=== PATIENT | male | born 1960 | race Caucasian/White ===

== ENCOUNTER 2016-06-21 11:58 | Emergency (ER) | payer SELFPAY ==
[2016-06-21 12:30] VITALS: BP 151/102
[2016-06-21] MEDS ORDERED: Ibuprofen 600 MG Tab PO ONE (12:46)
--- NOTE | 2016-06-21 12:51 | EDM.PDOC ---
ED HPI GENERAL MEDICAL PROBLEM - General Chief Complaint: ENT Problem Stated Complaint: SINSUS INFECTION Time Seen by Provider: 06/21/16 12:30 Source of Information: Reports: Patient History Limitations: Reports: No Limitations - History of Present Illness INITIAL COMMENTS - FREE TEXT/NARRATIVE: Patient is a 55 year old male who presents to the E.D. complaining of a 5 day history of sinus drainage, left ear plug, postnasal drip, nonproductive cough, and mild scratchy throat. Patient has been on a 1 month long roadtrip from [place] to [place] and now back through [place] to home. Symptoms have been waxing and waning depending on the day. Patient questions if he has a sinus infection. In addition patient has history of HTN and and hypothyroidism. States he ran out of his medications approximately 2.5 wks ago. Is awaiting to see PCP this coming Friday for refill but notes they would not refill his medications over the phone since he has not had any blood work obtained. Unclear why patient did not have his medications refilled prior to leaving. Patient denies fever/chills, cp, sob, n/v, dizziness, body aches, or any additional complaints. Duration: Chronic, Waxing/Waning Location: Reports: Head Severity: Mild Improves with: Reports: None Worsens with: Reports: None Context: Reports: Other (traveling) Associated Symptoms: Reports: Cough (to clear throat). Denies: Chest Pain, cough w sputum, Fever/Chills, Headaches, Loss of Appetite, Malaise, Nausea/ Vomiting, Shortness of Breath, Syncope, Weakness Treatments [employer]: Reports: Other (see below) (none stated) Bilateral Ear Pain Score (Numeric/FACES): 5 - Related Data Allergies Allergy/AdvReac Type Severity Reaction Status Date / Time No Known Allergies Allergy Verified 06/21/16 12:30 Home Meds: Home Meds Levothyroxine 1 tab PO DAILY 06/21/16 [History] Lisinopril 0 tab PO DAILY 06/21/16 [History] Ofloxacin [Floxin 0.3% Otic Soln] 10 drop EARLF DAILY #1 bottle 06/21/16 [Rx] ED ROS ENT - Review of Systems Review Of Systems: See Below Constitutional: Reports: No Symptoms HEENT: Reports: Rhinitis, Sinus Problem (congested), Throat Pain (intermittent, mild). Denies: Ear Discharge, Ear Pain, Nose Pain, Throat Swelling Respiratory: Reports: Cough. Denies: Shortness of Breath, Wheezing, Sputum, Hemoptysis Cardiovascular: Denies: Chest Pain, Dyspnea on Exertion, Lightheadedness, Palpitations, Syncope GI/Abdominal: Denies: Abdominal Pain, Nausea, Vomiting : Reports: No Symptoms Musculoskeletal: Denies: Muscle Pain (generalized) Skin: Reports: No Symptoms Neurological: Denies: Dizziness, Headache ED EXAM, ENT - Physical Exam Exam: See Below Exam Limited By: No Limitations General Appearance: Alert, WD/WN, No Apparent Distress Eye Exam: Bilateral Eye: PERRL Ears: Normal External Exam (bilaterally), Normal Canal (right), Hearing Grossly Normal, Normal TMs (Right), TM Obscured by Cerumen (left) Nose: Normal Inspection. No: Clear Rhinorrhea, Nasal Discharge, Nasal Swelling Mouth/Throat: Normal Inspection, Throat Pain, Other (post nasal drainage noted. ). No: Pharyngeal Erythema, Throat Swelling, Tonsillar Erythema, Tonsillar Exudates, Tonsillar Swelling, Uvular Deviation Head: Atraumatic, Normocephalic Neck: Normal Inspection, Supple, Non-Tender, Full Range of Motion. No: Lymphadenopathy (L), Lymphadenopathy (R) Respiratory/Chest: No Respiratory Distress, Lungs Clear, Normal Breath Sounds, No Accessory Muscle Use, Chest Non-Tender Cardiovascular: Normal Peripheral Pulses, Regular Rate, Rhythm, No Murmur Extremities: Normal Inspection Neurological: Alert, Oriented, CN II-XII Intact, Normal Cognition, Normal Gait, No Motor/Sensory Deficits Psychiatric: Normal Affect, Normal Mood Skin: Warm, Dry, Intact, Normal Color, No Rash Course - Vital Signs Last Recorded V/S: Last Vital Signs Temp 97.4 F 06/21/16 12:23 Pulse 72 06/21/16 12:23 Resp 16 06/21/16 12:23 BP 151/102 H 06/21/16 12:23 Pulse Ox 98 06/21/16 12:23 - Orders/Labs/Meds Orders: Active Orders 24 hr Category Date Time Status Ear Irrigation [RC] ASDIRECTED Care 06/21/16 12:45 Active Meds: Medications Discontinued Medications Generic Name Dose Route Start Last Admin Trade Name Freq PRN Reason Stop Dose Admin Ibuprofen 600 mg 06/21/16 12:46 06/21/16 13:01 Motrin PO 06/21/16 12:47 600 mg ONETIME ONE Administration - Re-Assessments/Exams Free Text/Narrative Re-Assessment/Exam: 06/21/16 12:54 Clinically patient has sinusitis and does not require antibiotic therapies. Treatment is flonase, claritan, OTC nasal saline spray, and ibuprofen. Will cleanse cerumen from left ear canal and evaluate TM. If no abnormalities noted. Will discharge home with instructions as documented. In addition patient has history of hypothyroidism and HTN. He has not taken levothyroxine or lisinopril for almost 2.5 weeks. Does not know the dosages and will not contact pharmacy for prescriptions details. States he will see PCP this coming Friday upon returning home. States he requires blood work prior to refilling prescription. 06/21/16 13:34 All of the cerumen was successfully removed. Ear canal is mildly red. For precautionary measures will discharge home with otic antibiotic drops. Departure - Departure Time of Disposition: 12:57 Disposition: Home, Self-Care 01 Condition: good Clinical Impression: Sinusitis Qualifiers: Sinusitis location: frontal Chronicity: acute Recurrence: non-recurrent Qualified Code(s): J01.10 - Acute frontal sinusitis, unspecified Abrasion of ear canal Qualifiers: Encounter type: initial encounter Laterality: left Qualified Code(s): S00.412A - Abrasion of left ear, initial encounter - Discharge Information Prescriptions: Ofloxacin [Floxin 0.3% Otic Soln] 10 drop EARLF DAILY #1 bottle Instructions: Sinusitis, Adult, [id number] Referrals: PCP,None [Primary Care Provider] - Forms: ED Department Discharge Additional Instructions: Utilize flonase, one spray each nare in the a.m. OTC nasal saline spray as needed throughout the day to loosen nasal secretions. Claritan 1 tab every am. Ibuprofen 600 mg every 6 hours as needed for headache/discomfort. Followup with PCP if symptoms persist or worsen. See your provider next Friday for refill of lisinopril and thyroid medication. Push the fluids. Ensure adequate rest. Return to the E.D. as needed for any new or worsening symptoms. Abrasion to the left ear canal. Utilize ofloxacin otic drops, 10 gtts to the left ear canal for 5 days. - My Orders Last 24 Hours: My Active Orders 06/21/16 12:45 Ear Irrigation [RC] ASDIRECTED - Assessment/Plan Last 24 Hours: My Active Orders 06/21/16 12:45 Ear Irrigation [RC] ASDIRECTED
== END 2016-06-21 13:15 | disposition home or self-care (01) ==
LOC: JD.ED 11:58
DX: J01.10 Acute frontal sinusitis, unspecified (principal); S00.412A Abrasion of left ear, initial encounter; H61.22 Impacted cerumen, left ear; Z79.2 Long term (current) use of antibiotics; Z79.899 Other long term (current) drug therapy; X58.XXXA Exposure to other specified factors, initial encounter
CPT/HCPCS: 69209; 99283; A9270